=== PATIENT | male | born 1960 | race Caucasian/White ===

== ENCOUNTER → 2017-05-10 | Outpatient (CLI) | payer OTHER ==
[~2017-05-10] MED LIST: ALLO300T2 PO; ATOR10TA66 PO; CALC-250 PO; CNC1KV IJ; ERGO50006 PO; FENO160T12 PO; FLUT16SP22 NS; FLUT1DIS28 IH; HYDR200T46 PO; IBUP-1780 PO; IOHEXOL 350 MG/ML 100 ML (OMNIPAQUE 350) VIAL IV ONE; LEVO50TA6 PO; LISI1TAB6 PO; LORA10TA7 PO; NS 100 ML (IVPB) BAG IV ONE; OMEG-105 PO; OMEG1CAP58 PO; OMEP40CA36 PO; TEST75GE2 TD; TEST75GE3 TOP; TRAZ-28 PO
--- NOTE | 2017-05-10 14:45 | Diagnostic Imaging Report ---
PROCEDURE: CT abdomen and pelvis with contrast. TECHNIQUE: Multiple contiguous axial images were obtained through the abdomen and pelvis after administration of intravenous contrast. INDICATION: Back pain. CONTRAST: 100 mL of Omnipaque 350 was administered intravenously. COMPARISON: 07/19/2016. FINDINGS: The lung bases appear clear. The liver is slightly prominent in size with diffuse hepatic steatosis noted. There are no calcified gallstones. The spleen, pancreas, and adrenal glands appear unremarkable. The kidneys have symmetric enhancement. There is a left renal cyst with a lobulated appearance and suggestion of minimal thin septations measuring 3.3 cm in size with no solid mass. It is slightly larger compared to 07/19/2016. No hydronephrosis. The abdominal aorta is normal in caliber. No quentin-aortic significantly enlarged lymph node is seen. There is prominent diverticulosis. No diverticulitis. The urinary bladder appears unremarkable. Suture material in the lower aspect of the anterior abdominal wall is seen. The osseous structures demonstrate prominent degenerative changes in the lower lumbar spine. There is fusion of the SI joints bilaterally. IMPRESSION: 1. There is hepatic steatosis and borderline hepatomegaly. 2. Diverticulosis. No diverticulitis. Dictated by: Dictated on workstation # [id number]
== END ==
LOC: RAD 14:03
PROVIDERS: ATTEND Surgery
DX: K76.0 Fatty (change of) liver, not elsewhere classified (principal); K57.30 Diverticulosis of large intestine without perforation or abscess without bleeding; R10.84 Generalized abdominal pain; R11.0 Nausea
CPT/HCPCS: 74177

== ENCOUNTER → 2017-05-10 | Outpatient (CLI) | payer OTHER ==
[~2017-05-10] MED LIST changes: -IOHEXOL 350 MG/ML 100 ML (OMNIPAQUE 350) VIAL IV ONE; -NS 100 ML (IVPB) BAG IV ONE
--- NOTE | 2017-05-10 12:52 | Diagnostic Imaging Report ---
PROCEDURE: US abdomen complete. TECHNIQUE: Multiple Real-time grayscale images were obtained over the abdomen in various projections. INDICATION: Abdominal pain. FINDINGS: The pancreas is largely obscured by bowel gas. The liver is hyperechoic and attenuates the ultrasound beam, suggestive of fatty infiltration. Hepatopetal flow in the portal vein is seen. The liver is 20 cm in craniocaudal measurement, mildly enlarged. The gallbladder demonstrates hyperechoic lesions along the wall with no shadowing up to 4 mm in size, suggestive of gallbladder polyps. No wall thickening or pericholecystic fluid. The CBD is obscured. The spleen is 11.8 cm in length, normal. The right kidney is 11.6 and the left kidney is 12.8 cm in length. In the left kidney, there is a 3.4 cm septated cystic lesion with no nodular solid component identified seen in the mid left kidney, compatible with a mildly complicated cyst. No focal lesion is seen in the right kidney. No hydronephrosis. No free fluid or fluid collection in the abdomen is noted. The sonographic Mendoza sign is reportedly negative. The aorta and IVC are largely obscured. IMPRESSION: 1. Mild hepatomegaly with echogenicity, suggestive of fatty infiltration. 2. Gallbladder polyps up to 4 mm in size. Dictated by: Dictated on workstation # [id number]
== END ==
LOC: RAD 11:33
PROVIDERS: ATTEND Nurse Practitioner Family
DX: K82.4 Cholesterolosis of gallbladder (principal)
CPT/HCPCS: 76700

== ENCOUNTER 2017-05-11 06:23 | Day surgery (SDC) | payer OTHER ==
[~2017-05-11] VITALS: Ht 172.7 cm; Wt 88.2 kg
[2017-05-11] MEDS ORDERED: NS IV 500 ML 500 ML IV PRN (06:54)
[2017-05-11] MEDS ORDERED: HURRICAINE EXT TUBE (BENZOCAINE) XX PRN (07:00)
[2017-05-11 07:13] VITALS: BP 123/89
--- NOTE | 2017-05-11 07:16 | Conscious Sedation/ASA ---
Conscious Sedation Pre-Proced Time Reviewed: 07:16 ASA Class: 2 Airway Mallampati Classification: ([place] appropriate class) I. II. III, IV Lungs Heart ASA score ASA 1: a normal healthy patient ASA 2: a patient with a mild systemic disease (mid diabetes, controlled hypertension, obesity ASA 3: a patient with a severe systemic disease that limits activity (angina , COPD, prior Myocardial infarction) ASA 4: a patient with an incapacitating disease that is a constant threat to life (CHF, renal failure) ASA 5: a moribund patient not expected to survive 24 hrs. (ruptured aneurysm) ASA 6: a declared brain patient whose organs are being harvested. For emergent operations, add the letter E after the classification Grade 2 Sedation Plan: Discussed options with patient/fam Note The patient is an appropriate candidate to undergo the planned procedure, sedation, and anesthesia. The patient immediately re-assessed prior to indication. PAT NEGRETE MD May 11, 2017 7:16 am
[2017-05-11] MEDS ORDERED: HURRICAINE EXT TUBE (BENZOCAINE) ONE (07:18)
[2017-05-11] MEDS ORDERED: fentaNYL INJECTION 100 MCG/2 ML AMP ONE (07:18)
[2017-05-11] MEDS ORDERED: MIDAZOLAM 2 MG/2 ML (VERSED) VIAL ONE ×3 (07:18)
[2017-05-11] MEDS: MIDAZOLAM 2 MG/2 ML (VERSED) VIAL IVP PRN ×3 (07:42→07:48)
[2017-05-11] MEDS: fentaNYL INJECTION 100 MCG/2 ML AMP IVP PRN ×2 (07:43→07:46)
--- NOTE | 2017-05-11 08:02 | Endo Procedure Record ---
Endo Procedure Report Date of Procedure May 11, 2017 Surgeon (s) PAT NEGRETE MD Post Procedure/Op Diagnosis hiatal hernia with distal esophageal stricture Distal gastritis Procedure Performed EGD with antral biopsy Esophageal balloon dilatation Description of Procedure Anesthesia Type: Conscious Sedation Specimen(s) collected/removed antral mucosa for H. pylori Description of the Procedure Indication for procedure: This gentleman presented with epigastric pain of rather short duration. Evaluation of the gallbladder showed a 4 mm polyp with no evidence of acute cholecystitis. CT scan was negative for any significant abnormality. Therefore, it was felt reasonable to perform an upper endoscopy. Informed consent was obtained after reviewing the procedure in detail. Description of the procedure: He was placed in left lateral decubitus position and his vital signs were monitored. Conscious sedation was achieved using Versed and fentanyl. The flexible gastroscope was introduced down the esophagus , past the stomach, into the proximal duodenum. Findings: Esophagus: Hiatal hernia with a smooth, concentric, peptic stricture. It was dilated to 20 mm with the balloon. Stomach: Distal gastritis of mild severity. Biopsy for H. pylori was obtained. Duodenum : normal He tolerated the procedure well and was taken back to the nursing area in a stable condition. Impression: Epigastric pain. Esophageal stricture, balloon dilatation completed. H. pylori status pending. Copies To: SYED MELENDEZ XAVIER M MD May 11, 2017 8:02 am
--- NOTE | 2017-05-11 08:04 | Discharge Inst-Simple/Standard ---
Discharge Inst-Standard Discharge Medications New, Converted or Re-Newed RX: Other Patient Instructions/Follow Up Plan of Care/Instructions/FU: to increase omeprazole to twice a day. Follow-up with me in a week. To avoid nonsteroidals Activity as Tolerated: Yes Discharge Diet: No Restrictions PAT NEGRETE MD May 11, 2017 8:04 am
[2017-05-11 08:20] VITALS: BP 113/79
[2017-05-11 08:49] VITALS: BP 123/90
[2017-05-11 08:56] VITALS: BP 123/90
== END 2017-05-11 08:55 | disposition home or self-care (01) ==
LOC: ENDO 06:23
PROVIDERS: ATTEND Surgery
DX: K22.2 Esophageal obstruction (principal); K44.9 Diaphragmatic hernia without obstruction or gangrene; K29.70 Gastritis, unspecified, without bleeding; I25.10 Atherosclerotic heart disease of native coronary artery without angina pectoris; I10 Essential (primary) hypertension; E78.1 Pure hyperglyceridemia; E78.5 Hyperlipidemia, unspecified; I08.1 Rheumatic disorders of both mitral and tricuspid valves; M10.9 Gout, unspecified; E66.9 Obesity, unspecified; Z68.29 Body mass index [BMI] 29.0-29.9, adult; Z79.899 Other long term (current) drug therapy

== ENCOUNTER 2017-05-18 10:02 | Outpatient (CLI) | payer OTHER ==
[~2017-05-18] VITALS: Ht 172.7 cm; Wt 88.0 kg
[2017-05-18] MEDS ORDERED: UBID50TA3 PO (11:10)
[2017-05-18] MEDS ORDERED: LEVO5TAB12 PO (11:10)
[2017-05-18] MEDS ORDERED: TURM538C PO (11:10)
[2017-05-18] MEDS ORDERED: MAGN400C PO (11:10)
[2017-05-18] MEDS ORDERED: LACT1CAP62 PO (11:10)
[2017-05-18] MEDS ORDERED: INSU100I32 SQ (11:10)
[2017-05-18] MEDS ORDERED: INSU100V SQ (11:10)
[2017-05-18] MEDS ORDERED: [UNRECOGNIZED DRUG - OTHER] PO (11:10)
[2017-05-18] MEDS ORDERED: LEVO75TA6 PO (11:10)
[2017-05-18] MEDS ORDERED: MONT10TA24 PO (11:10)
[2017-05-18] MEDS ORDERED: DICL75TA2 PO (11:10)
[2017-05-18] MEDS ORDERED: CYCL10TA9 PO (11:10)
== END 2017-05-18 11:17 ==
LOC: PREOP 10:02
PROVIDERS: ATTEND Surgery
DX: Z01.818 Encounter for other preprocedural examination (principal); G24.9 Dystonia, unspecified; K82.4 Cholesterolosis of gallbladder

== ENCOUNTER 2017-05-20 09:33 | Day surgery (SDC) | payer OTHER ==
--- NOTE | 2017-05-19 13:42 | History & Physicial ---
History of Present Illness History of Present Illness Reason for visit/HPI to undergo robotic-assisted cholecystectomy to manage dyskinesia of the gallbladder along with a polyp within the gallbladder. Date of Admission 05/20/2017 Date Seen by Provider: May 09, 2017 Time Seen by Provider: 11:20 I consulted on this patient on 05/19/17 13:38 Attending Physician Pat Negrete MD Admitting Physician Gonzalo Ruffin DO Consult Allergies and Home Medications Allergies Coded Allergies: No Known Drug Allergies (Unverified , 09/24/15) Home Medications Allopurinol 300 Mg Tablet, 300 MG PO DAILY, (Reported) Atorvastatin Calcium 10 Mg Tablet, 10 MG PO DAILY, (Reported) Cyanocobalamin 1,000 Mcg/Ml Inj, 1,000 MCG IJ WEEKLY ON SUNDAYS, (Reported) Cyclobenzaprine HCl 10 Mg Tablet, 10 MG PO HS, (Reported) Diclofenac Sodium 75 Mg Tablet.dr, 75 MG PO DAILY, (Reported) Ergocalciferol (Vitamin D2) 50,000 Unit Capsule, 50,000 UNITS PO SUN,TUE,TUE, ( Reported) Fluticasone Propionate 16 Gm [place].susp, 1 SPRAY NS BID PRN for CONGESTION, ( Reported) Hydroxychloroquine Sulfate 200 Mg Tablet, 200 MG PO DAILY, (Reported) Insulin Degludec 100 Unit/1 Ml Insuln.pen, 20 UNIT SQ DAILY, (Reported) Insulin Lispro 100 Unit/1 Ml Vial, 10 UNIT SQ TIDWM, (Reported) Lactobacillus Acidophilus 1 Each Capsule, 1 EACH PO DAILY, (Reported) Levocetirizine Dihydrochloride 5 Mg Tablet, 5 MG PO DAILY, (Reported) Levothyroxine Sodium 75 Mcg Tablet, 75 MCG PO DAILY, (Reported) Lisinopril/Hydrochlorothiazide 1 Each Tablet, 1 TAB PO DAILY, (Reported) Loratadine 10 Mg Tablet, 10 MG PO DAILY, (Reported) Magnesium Oxide 400 Mg Capsule, 400 MG PO DAILY, (Reported) Montelukast Sodium 10 Mg Tablet, 10 MG PO HS, (Reported) [place]-3 Acid Ethyl Esters 1 Gm Capsule, 1 GM PO DAILY, (Reported) Omeprazole 40 Mg Capsule.dr, 40 MG PO DAILY, (Reported) 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, 2 APPFUL TOP HS, (Reported) 2 PUMPS AT BEDTIME Trazodone HCl 50 Mg Tablet, 50 MG PO HS, (Reported) Turmeric Root Extract 538 Mg Capsule, 538 MG PO DAILY, (Reported) Ubidecarenone 50 Mg Tab.chew, 50 MG PO DAILY, (Reported) [intramax] , 1 OZ PO DAILY, (Reported) dissolve in bottle of water Past Fsvykdw-Fjsklp-Eqrxfv Hx Patient Social History Marrital Status: Employed/Student: employed Smoking Status: Never a Smoker Recent Hopitalizations: No Immunizations Up To Date Tetanus Booster (TDap): Less than 5yrs Pediatric: No Seasonal Allergies Seasonal Allergies: No Surgeries Yes Abdominal, Appendectomy Respiratory No Currently Using CPAP: No Currently Using BIPAP: No Cardiovascular Yes High Cholesterol, Hypertension Neurological No Reproductive System Hx Reproductive Disorders: No Sexually Transmitted Disease: No HIV/AIDS: No Genitourinary No Gastrointestinal Yes Gastroesophageal Reflux, Diverticulosis, Hiatal Hernia Musculoskeletal Yes Arthritis, Chronic Back Pain, Fractures Endocrine History of Endocrine Disorders: Yes Endocrine Disorders: Hypothyroidsim HEENT History of HEENT Disorders: No Loss of Vision: Denies Hearing Impairment: Denies Cancer Yes Skin Did You Recieve Any Treatments: No Psychosocial History of Psychiatric Problem: No Family Medical History Significant Family History: AAA, COPD Constitutional: no symptoms reported EENTM: no symptoms reported Cardiovascular: no symptoms reported Gastrointestinal: see HPI Genitourinary: no symptoms reported Musculoskeletal: back pain Skin: no symptoms reported Physical Exam Vital Signs Capillary Refill : General Appearance: No Apparent Distress HEENT: Normal ENT Inspection Neck: Normal Inspection Respiratory: Lungs Clear Cardiovascular: Regular Rate, Rhythm Gastrointestinal: Non Tender, Soft, Other Back: Normal Inspection Extremity: Normal Inspection Neurologic/Psychiatric: Alert, Oriented x3 Skin: Warm/Dry Comments midline scar from a trauma laparotomy. No incisional hernia. Mendoza's sign negative Assessment/Plan Assessment and Plan gentleman with dyskinesia of the gallbladder and a polyp within it. Previous abdominal surgery using a midline incision. Offered robotic-assisted cholecystectomy in anticipation of symptom relief. Expected recovery, complications of wound infection and bile leak, persistence of pain etc. reviewed thoroughly. Seems to be in agreement to proceed Problems: Admission Diagnosis gallbladder polyp. dyskinesia of the gallbladder PAT NEGRETE MD May 19, 2017 1:42 pm
[~2017-05-20] VITALS: Ht 172.7 cm; Wt 88.0 kg
[~2017-05-20 09:33] MED LIST changes: +BUP/EPI 0.5% 1:200,000 (MARCAINE) 10ML VIAL IJ ONE; +CYCL10TA9 PO; +DICL75TA2 PO; +INSU100I32 SQ; +INSU100V SQ; +LACT1CAP62 PO; +LEVO5TAB12 PO; +LEVO75TA6 PO; +MAGN400C PO; +MONT10TA24 PO; +TURM538C PO; +UBID50TA3 PO; +[UNRECOGNIZED DRUG - OTHER] PO
[2017-05-20] MEDS ORDERED: ceFAZolin 2 GM/50 ML NS 50 ML ONE (09:34)
[2017-05-20] MEDS ORDERED: metroNIDAZOLE 500MG/100ML IVPB 100 ML ONE (09:34)
[2017-05-20] MEDS: LACTATED RINGERS 1,000 ML IV PRN ×2 (09:45→10:26)
[2017-05-20] MEDS ORDERED: metroNIDAZOLE 500 MG/100 ML IVPB (PRE-MIX) IV ONE (09:45)
[2017-05-20] MEDS ORDERED: ceFAZolin 2 GM/NS 50 ML IV ONE (09:45)
--- NOTE | 2017-05-20 09:48 | Progress Note-Pre Operative ---
Pre-Operative Progress Note H&P Reviewed The H&P was reviewed, patient examined and no changes noted. Date Seen by Provider: May 09, 2017 Time Seen by Provider: 16:10 Date H&P Reviewed: May 20, 2017 Time H&P Reviewed: 09:48 Pre-Operative Diagnosis: GB Dyskinesia PAT NEGRETE MD May 20, 2017 9:48 am
[2017-05-20] MEDS ORDERED: fentaNYL INJECTION 100 MCG/2 ML AMP ONE ×3 (09:49→11:13)
[2017-05-20] MEDS ORDERED: proPOfol 200 MG/20 ML (DIPRIVAN) VIAL IV ONE (09:49)
[2017-05-20] MEDS ORDERED: SEVOFLURANE (ULTANE) 15 ML INHAL SOLN ONE ×6 (09:49→11:12)
[2017-05-20] MEDS ORDERED: MIDAZOLAM 2 MG/2 ML (VERSED) VIAL ONE (09:49)
[2017-05-20] MEDS ORDERED: LIDOCAINE PF 2% 5 ML (XYLOCAINE) VIAL ONE (09:49)
[2017-05-20] MEDS ORDERED: ROCURONIUM 50 MG/5 ML (ZEMURON) VIAL IV ONE (09:50)
[2017-05-20] MEDS ORDERED: HYDR-3820 PO (10:31)
--- NOTE | 2017-05-20 10:32 | Discharge Inst-Simple/Standard ---
Discharge Inst-Standard Discharge Medications New, Converted or Re-Newed RX: RX on Chart Patient Instructions/Follow Up Plan of Care/Instructions/FU: Dressings off in 48 hours. Incentive spirometry. Follow-up in 3 weeks. Activity as Tolerated: Yes Discharge Diet: ADA PAT Amado MD May 20, 2017 10:32 am
[2017-05-20] MEDS ORDERED: GLYCOPYRROLATE 0.2 MG/ML (ROBINUL) 2 ML VIAL ONE (11:12)
[2017-05-20] MEDS ORDERED: NEOSTIGMINE (BLOXIVERZ ) 1 MG/1ML 10 ML VIAL ONE (11:12)
--- NOTE | 2017-05-20 11:27 | Operative Report ---
Operative Report Date of Procedure/Surgery May 20, 2017 Surgeon (s) PAT NEGRETE MD Statistical Clerk (s): n/a Post-Operative Diagnosis Same Procedure Performed Robotic-assisted cholecystectomy Description of Procedure Anesthesia Type: General Estimated blood loss (mL): Minimal Specimen(s) collected/removed gallbladder Description of the Procedure Indication for procedure: This gentleman presented with typical biliary symptoms due to a combination of chronic acalculous cholecystitis and a polyp in the gallbladder. Therefore, after ruling out other abnormalities, he was offered cholecystectomy using minimally invasive technique. Informed consent was obtained after reviewing the operative details and complications of wound infection, bile leak persistence of his symptoms. Description of the procedure: He was placed supine on the operating table and general anesthesia induced using an endotracheal tube. 2 g of Ancef and 500 mg of Flagyl were administered intravenously as prophylaxis against wound infection. Sequential compression devices were placed around his legs, to minimize the risk of venous thrombosis. Abdomen was prepared and draped in the usual sterile manner. Due to previous abdominal surgery using a midline incision, I elected to establish pneumoperitoneum using a Veress needle introduced over the left subcostal margin. Intra-abdominal pressure was maintained at 15 mmHg, using carbon dioxide insufflation. A 5 mm trocar was placed and anatomy visualized using a 5 mm, 30 conventional laparoscope. Omentum was adherent to the undersurface of the proximal aspect of the midline scar. Under direct view, I placed an 8 mm trocar over the left side of the abdomen and took down the omental adhesions by blunt dissection. Subsequently, I was able to place a 12 mm trocar over the supraumbilical region followed by another 8 mm trocar over the right-sided abdomen. We, then switched to the robotic laparoscope. The system was docked in place. The gallbladder was rather friable due to chronic inflammation. The fundus was retracted cephalad and infundibulum grasped with Cadiere forceps. Thickened tissue around Calot's triangle was incised using hook cautery, delineating the cystic duct and artery. Both were divided between locking clips. Cholecystectomy was then completed using the hook cautery. The gallbladder was then placed in an Endo Catch bag and removed via the supraumbilical trocar site. The fascia over this incision was closed using #1 Vicryl using a Miguel A Moreno device, under direct laparoscopic view. Skin incisions were closed using 4-0 Vicryl, in a subcuticular fashion. 0.5 percent Marcaine with epinephrine was infiltrated along the incisions, both pre-preemptively and at the conclusion of the operation. He tolerated the procedure well, was extubated in the operating room and taken to the recovery room in a stable condition. Findings of the Procedure See op report Allergies and Home Medications Allergies Coded Allergies: No Known Drug Allergies (Unverified , 09/24/15) Home Medications Allopurinol 300 Mg Tablet, 300 MG PO DAILY, (Reported) Atorvastatin Calcium 10 Mg Tablet, 10 MG PO DAILY, (Reported) Cyanocobalamin 1,000 Mcg/Ml Inj, 1,000 MCG IJ WEEKLY ON SUNDAYS, (Reported) Cyclobenzaprine HCl 10 Mg Tablet, 10 MG PO HS, (Reported) Diclofenac Sodium 75 Mg Tablet.dr, 75 MG PO DAILY, (Reported) Ergocalciferol (Vitamin D2) 50,000 Unit Capsule, 50,000 UNITS PO SUN,TUE,TUE, ( Reported) Fluticasone Propionate 16 Gm [place].susp, 1 SPRAY NS BID PRN for CONGESTION, ( Reported) Hydrocodone/Acetaminophen 1 Each Tablet, 1 TAB PO Q4H PRN for PAIN-MILD TO MODERATE, #30 Ref 0 Prescribed by: APT NEGRETE on 05/20/17 1031 Hydroxychloroquine Sulfate 200 Mg Tablet, 200 MG PO DAILY, (Reported) Insulin Degludec 100 Unit/1 Ml Insuln.pen, 20 UNIT SQ DAILY, (Reported) Insulin Lispro 100 Unit/1 Ml Vial, 10 UNIT SQ TIDWM, (Reported) Lactobacillus Acidophilus 1 Each Capsule, 1 EACH PO DAILY, (Reported) Levocetirizine Dihydrochloride 5 Mg Tablet, 5 MG PO DAILY, (Reported) Levothyroxine Sodium 75 Mcg Tablet, 75 MCG PO DAILY, (Reported) Lisinopril/Hydrochlorothiazide 1 Each Tablet, 1 TAB PO DAILY, (Reported) Loratadine 10 Mg Tablet, 10 MG PO DAILY, (Reported) Magnesium Oxide 400 Mg Capsule, 400 MG PO DAILY, (Reported) Montelukast Sodium 10 Mg Tablet, 10 MG PO HS, (Reported) [place]-3 Acid Ethyl Esters 1 Gm Capsule, 1 GM PO DAILY, (Reported) Omeprazole 40 Mg Capsule.dr, 40 MG PO DAILY, (Reported) Testosterone 75 Gm 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
[2017-05-20] MEDS ORDERED: morphine INJ 10 MG/ML 1ML (SYR OR VIAL) ONE (11:28)
[2017-05-20] MEDS: morphine INJ 10 MG/ML 1ML (SYR OR VIAL) IVP PRN ×2 (11:40→11:50)
[2017-05-20] MEDS ORDERED: PROMETHAZINE INJ 25 MG/ML (PHENERGAN) AMP IVP PRN (11:45)
[2017-05-20] MEDS ORDERED: fentaNYL INJECTION 100 MCG/2 ML AMP IVP PRN (11:45)
[2017-05-20] MEDS ORDERED: HYDROmorphone (DILAUDID) 2 MG/ML VIAL IVP PRN (11:45)
[2017-05-20] MEDS ORDERED: MEPERIDINE (DEMEROL) INJ 50 MG/ML IVP PRN (11:45)
[2017-05-20] MEDS ORDERED: ONDANSETRON 4 MG/2 ML (SDV) Z0FRAN IVP PRN (11:45)
[2017-05-20 12:25] VITALS: BP 159/96
[2017-05-20 13:25] VITALS: BP 155/86
== END 2017-05-20 14:25 | disposition home or self-care (01) ==
LOC: SDC 09:33
PROVIDERS: ATTEND Surgery
DX: K81.1 Chronic cholecystitis (principal); E11.9 Type 2 diabetes mellitus without complications; E78.00 Pure hypercholesterolemia, unspecified; E78.5 Hyperlipidemia, unspecified; I10 Essential (primary) hypertension; K21.9 Gastro-esophageal reflux disease without esophagitis; E03.9 Hypothyroidism, unspecified; Z79.899 Other long term (current) drug therapy; Z11.2 Encounter for screening for other bacterial diseases
CPT/HCPCS: 82962; 87081

== ENCOUNTER → 2017-11-10 | Outpatient (CLI) | payer OTHER ==
[~2017-11-10] MED LIST changes: -BUP/EPI 0.5% 1:200,000 (MARCAINE) 10ML VIAL IJ ONE; +HYDR-3820 PO
--- NOTE | 2017-11-10 12:05 | Diagnostic Imaging Report ---
INDICATION: Chronic right shoulder pain. TIME OF EXAM: 12:01 PM FINDINGS: Two views of the right shoulder demonstrate severe degenerative changes. The humerus is high riding in relation to the glenoid with complete loss of the normal acromiohumeral space. Findings are consistent with chronic rotator cuff arthropathy. The humeral head does articulate with the undersurface of the acromion. Severe glenohumeral, acromioclavicular and humeral acromial degenerative change is seen. No fractures are identified. A small well-corticated osseous density is noted adjacent to the greater tuberosity. There are osteophytes at the humeral head neck junction. IMPRESSION: Severe degenerative changes and findings consistent with rotator cuff arthropathy. No acute bony abnormality is detected. Dictated by: Dictated on workstation # [id number]
== END ==
LOC: RAD 11:34
PROVIDERS: ATTEND Internal Medicine
DX: M19.011 Primary osteoarthritis, right shoulder (principal)
CPT/HCPCS: 73030

== ENCOUNTER → 2018-09-29 | Outpatient (CLI) | payer BC ==
[~2018-09-29] MED LIST changes: +TRAZ-189 PO; -TRAZ-28 PO
--- NOTE | 2018-09-29 14:36 | Diagnostic Imaging Report ---
INDICATION: Chronic cough. PA and lateral views were obtained. FINDINGS: The heart size, mediastinal configuration, and pulmonary vascularity are within normal limits. There is no pleural effusion, pneumothorax, or pneumonia. The osseous structures are unremarkable. IMPRESSION: No acute cardiopulmonary abnormality. Dictated by: Dictated on workstation # [id number]
== END ==
LOC: RAD 12:51
PROVIDERS: ATTEND Internal Medicine
DX: R05 Cough (principal)
CPT/HCPCS: 71046

== ENCOUNTER → 2018-11-23 | Outpatient (CLI) | payer BC ==
--- NOTE | 2018-11-23 13:16 | Diagnostic Imaging Report ---
INDICATION: Left renal cyst. COMPARISON: Correlation is made with prior CT from 05/10/2017. FINDINGS: Right kidney measures 12.6 x 5.4 x 5.8 cm and the left kidney measures 12.6 x 5.7 x 5.8 cm. Cortical thickness and echogenicity appears normal. Previously noted cyst in the left kidney measures 3.8 x 3.2 x 3.5 cm. This measured approximately 3 cm on prior exam, therefore is slightly larger. No calculi or hydronephrosis is seen. Renal Doppler was also performed. Proximal right renal artery was not visualized due to bowel gas. Mid and distal right renal artery shows normal velocities. The left renal artery demonstrates normal velocities. Duplex waveforms appear to be unremarkable. IMPRESSION: 1. Slight increase in size of left renal cyst since CT study from 05/10/2017. 2. No evidence of renal artery stenosis. Dictated by: Dictated on workstation # [id number]
== END ==
LOC: RAD 11:00
PROVIDERS: ATTEND Nurse Practitioner Family
DX: I15.1 Hypertension secondary to other renal disorders (principal); N28.1 Cyst of kidney, acquired
CPT/HCPCS: 76770; 93975

== ENCOUNTER → 2019-02-27 | Outpatient (CLI) | payer BC ==
[~2019-02-27] VITALS: Ht 172.7 cm; Wt 90.7 kg
[~2019-02-27] MED LIST changes: +CATHETER FLUSH 10 ML SYR IV PRN; +REGADENOSON 0.4 MG/5 ML SYR (LEXISCAN) IV ONE; -TRAZ-189 PO; +TRAZ-222 PO
[2019-02-27 07:56] VITALS: BP 144/88
[2019-02-27 08:12] VITALS: BP 166/88
--- NOTE | 2019-03-02 13:03 | Cardiology Stress Test Report ---
Stress Test Report Type of NM Stress Test: Test Type: LEXISCAN 0.4MG/5ML Date of Procedure/Referring: Date of Procedure: Feb 27, 2019 PCP Mimi Ruffin Dnp Admitting Physician Gonzalo Ruffin DO Indications: Chest pain Baseline Heart Rate: 69 Baseline Blood Pressure: Blood Pressure Systolic: 166 Blood Pressure Diastolic: 88 Baseline EKG: Baseline EKG: sinus rhythm Summary & Conclusion: Summary: The patient was brought to the stress lab after informed consent was taken. Stress test was performed according to the Lexiscan protocol. 0.4 mg of IV Lexiscan was given. Low-grade exercise was performed. Baseline EKG showed sinus rhythm at 69 BPM. Initial blood pressure was 144/88 mmHg. Maximum heart rate was 96 bpm and blood pressure 166/88 mmHg. Patient did not have any chest pain, arrhythmias or ST segment changes during the stress test. 10.09 mCi of Myoview were given for rest imaging and 30.1 mCi of Myoview given for stress imaging. Transient ischemic dilatation score 1.07, EF 63 percent. Normal wall motion. Mild apical reversible defect. Conclusion: Pharmacological stress test was negative for ischemia. Normal LV function with no wall motion abnormalities. Mild apical reversible defect. Clinical correlation is recommended. Bushra STREET MD Mar 02, 2019 13:03
== END ==
LOC: CARD 06:34
PROVIDERS: ATTEND Nurse Practitioner Family
DX: R07.89 Other chest pain (principal); R09.89 Other specified symptoms and signs involving the circulatory and respiratory systems
CPT/HCPCS: 78452; 93017